=== PATIENT | female | born 1970 | race Two or more races ===

== ENCOUNTER → 2018-05-04 | Emergency (ER) | payer OTHER ==
[~2018-05-04] VITALS: Ht 157.5 cm; Wt 71.7 kg
[~2018-05-04] MED LIST: CLONAZEPAM1 M1; EFFEXOR XR150 MG; TRAZODONE HCL50 MG
== END | disposition designated cancer center or children's hospital (05) ==
LOC: ER 19:29
DX: T42.4X2A Poisoning by benzodiazepines, intentional self-harm, initial encounter (principal); T43.212A Poisoning by selective serotonin and norepinephrine reuptake inhibitors, intentional self-harm, initial encounter; T50.992A Poisoning by other drugs, medicaments and biological substances, intentional self-harm, initial encounter; Y92.098 Other place in other non-institutional residence as the place of occurrence of the external cause